=== PATIENT | female | born 1960 | race Caucasian/White ===

== ENCOUNTER 2018-01-19 19:41 | Emergency (ER) | payer OTHER ==
[2018-01-19 19:41] VITALS: BMI 23.8
[2018-01-19 20:04] VITALS: BP 139/88; PULSE 87; RESP 18; TEMP 98.7; O2SAT 99
[2018-01-19] MEDS ORDERED: Tetanus/Diphtheria Toxoids 0.5 ml Syringe IM ONE (20:13)
[2018-01-19] MEDS ORDERED: Bacitracin 500 Units/gm Oint Foilpak UD TOP ONE (20:17)
[2018-01-19] MEDS ORDERED: Tdap Vaccine 0.5 ml Vial (10-64 yrs) IM ONE (20:19)
[2018-01-19] MEDS ORDERED: Bacitracin 500 Units/gm Oint Foilpak UD ONE (20:20)
--- NOTE | 2018-01-19 20:20 | C.PDOC ---
History Of Present Illness 57 year old female presents to the ED for evaluation of left hand injury. Patient reports while at home she accidentally punctured her hand with a stapler , requesting tetanus hot. 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 Patient denies pain, active bleeding, swelling, weakness, numbness. Time Seen by Provider: 01/19/18 20:07 Chief Complaint (Nursing): Abnormal Skin Integrity History Per: Patient History/Exam Limitations: no limitations Onset/Duration Of Symptoms: Hrs Current Symptoms Are (Timing): Still Present Location Of Injury: Left: Hand Quality Of Symptoms: Painful Recent travel outside of the [place]: No Additional History Per: Patient Past Medical History Reviewed: Historical Data, Nursing Documentation, Vital Signs Vital Signs: Last Vital Signs Temp 98.7 F 01/19/18 20:01 Pulse 87 01/19/18 20:01 Resp 18 01/19/18 20:01 BP 139/88 01/19/18 20:01 Pulse Ox 99 01/19/18 23:31 - Medical History PMH: Anxiety, HTN Denies: Chronic Kidney Disease Surgical History: No Surg Hx - [facility] Procedures CLOSED ENDOSCOPIC BIOPSY OF LARGE INTESTINE (12/19/14) ESOPHAGOGASTRODUODENOSCOPY [EGD] W/CLOSED BIOPSY (12/26/14) Family History: States: Unknown Family Hx - Social History Hx Alcohol Use: No Hx Substance Use: No - Immunization History Hx Tetanus Toxoid Vaccination: No Hx Influenza Vaccination: Yes Hx Pneumococcal Vaccination: Yes Review Of Systems Constitutional: Negative for: Fever, Chills Cardiovascular: Negative for: Chest Pain Respiratory: Negative for: Shortness of Breath Musculoskeletal: Positive for: Hand Pain Skin: Positive for: Other (indentations). Negative for: Rash Neurological: Negative for: Weakness, Numbness Physical Exam - Physical Exam Appears: Non-toxic, No Acute Distress Skin: Normal Color, Warm, Dry, Other (2 small indentations consistent with staple punctures noted on left hand) Head: Atraumatic, Normacephalic Eye(s): bilateral: Normal Inspection Extremity: Normal ROM, No Tenderness, Capillary Refill (< 2 seconds), No Swelling Pulses: Left Radial: Normal, Right Radial: Normal Neurological/Psych: Oriented x3, Normal Motor, Normal Sensation Gait: Steady ED Course And Treatment O2 Sat by Pulse Oximetry: 99 (ON RA) Pulse Ox Interpretation: Normal Progress Note: Plan: - Bacitracin. - Tetanus update. Patient's wound was cleaned with betadine, bacitracin was applied to the site of the wound. Patient was instructed on wound care and advised to follow up with PMD in 2 days or return to the ED if symptoms worsen. 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 - Scribe Statement The provider has reviewed the documentation as recorded by the Scribe Rakesh Bellamy All medical record entries made by the Scribe were at my direction and personally dictated by me. I have reviewed the chart and agree that the record accurately reflects my personal performance of the history, physical exam, medical decision making, and the department course for this patient. I have also personally directed, reviewed, and agree with the discharge instructions and disposition.
== END 2018-01-19 20:25 | disposition home or self-care (01) ==
LOC: SUPCPDRO 19:41 → C.ER 19:41
DX: S61.432A Puncture wound without foreign body of left hand, initial encounter (principal); W27.8XXA Contact with other nonpowered hand tool, initial encounter; Y92.009 Unspecified place in unspecified non-institutional (private) residence as the place of occurrence of the external cause

== ENCOUNTER 2018-11-16 09:57 | Emergency (ER) | payer MEDICARE, OTHER ==
[2018-11-16 09:58] VITALS: BMI 23.8
[2018-11-16] MEDS ORDERED: DiphenhydrAMINE 50 mg/ml Inj IVP STA (11:19)
[2018-11-16 11:39] LABS: BASO % 0.9 % (0.0-2.0); EOS % 0.6 % (0.0-4.0); HEMOGLOBIN 8.8 g/dL (11.0-16.0); LYMPH % 18.2 % (20.0-40.0); MEAN CELL VOLUME 81.7 fL (81.0-99.0); MEAN CORPUSCULAR HEMOGLOBIN 26.3 pg (27.0-31.0); MEAN CORPUSCULAR HGB CONC 32.2 g/dL (33.0-37.0); MEAN PLATELET VOLUME 9.1 fL (7.2-11.7); MONO # 0.4 K/uL (0.0-0.8); MONO % 7.4 % (0.0-10.0); NEUT # 3.9 K/uL (1.8-7.0); NEUT % 72.9 % (50.0-75.0); NRBC % 0.1 % (0.0-2.0); RBC 3.36 Mil/uL (3.80-5.20); RED CELL DISTRIBUTION WIDTH 18.7 % (11.5-14.5); WHITE BLOOD COUNT 5.3 K/uL (4.8-10.8)
[2018-11-16 11:59] LABS: ALBUMIN 3.9 g/dL (3.5-5.0); ALT/SGPT 126 U/L (9-52); AST/SGOT 126 U/L (14-36); BLOOD UREA NITROGEN 10 mg/dL (7-17); CALCIUM 10.1 mg/dl (8.6-10.4); GFR NON-AFRICAN AMERICAN > 60
[2018-11-16] MEDS ORDERED: DiphenhydrAMINE 50 mg/ml Inj ONE (12:12)
--- NOTE | 2018-11-16 12:53 | C.PDOC ---
History Of Present Illness Pt c/o generalized itching. Time Seen by Provider: 11/16/18 10:44 Chief Complaint (Nursing): Allergic Reaction History Per: Patient, Family, Subpoena Server History/Exam Limitations: language barrier Onset/Duration Of Symptoms: Days Current Symptoms Are (Timing): Still Present Possible Cause: Unknown Associated Symptoms: Itching Home/EMS Treatment: Other (Atarax 25mg) Severity: Moderate Additional History Per: Prior Records Past Medical History Reviewed: Historical Data, Nursing Documentation, Vital Signs Vital Signs: Last Vital Signs Temp 98.2 F 11/16/18 10:05 Pulse 97 H 11/16/18 10:05 Resp 17 11/16/18 10:05 BP 139/85 11/16/18 10:05 Pulse Ox 100 11/16/18 10:05 - Medical History PMH: Anemia, Anxiety, HTN, Malignancy (Liver) - [facility] Procedures CLOSED ENDOSCOPIC BIOPSY OF LARGE INTESTINE (12/19/14) ESOPHAGOGASTRODUODENOSCOPY [EGD] W/CLOSED BIOPSY (12/26/14) Family History: States: Unknown Family Hx - Social History Hx Alcohol Use: No Hx Substance Use: No - Immunization History Hx Tetanus Toxoid Vaccination: No Hx Influenza Vaccination: Yes Hx Pneumococcal Vaccination: Yes Review Of Systems Except As Marked, All Systems Reviewed And Found Negative. Constitutional: Negative for: Fever Eyes: Negative for: Conjunctivae Inflammation, Eyelid Inflammation, Redness ENT: Negative for: Mouth Pain, Mouth Swelling, Throat Pain, Throat Swelling Cardiovascular: Negative for: Chest Pain Respiratory: Negative for: Shortness of Breath Gastrointestinal: Negative for: Vomiting, Abdominal Pain Genitourinary: Negative for: Dysuria Musculoskeletal: Negative for: Neck Pain Skin: Negative for: Rash Neurological: Negative for: Weakness, Numbness Physical Exam - Physical Exam Appears: Non-toxic, No Acute Distress, Chronically Ill Skin: Warm, Dry, Pale, No Rash Head: Atraumatic, Normacephalic Eye(s): bilateral: PERRL, EOMI Throat: Normal Neck: Normal ROM, Supple Cardiovascular: Rhythm Regular Respiratory: Normal Breath Sounds, No Accessory Muscle Use Gastrointestinal/Abdominal: Soft, No Tenderness Extremity: Normal ROM Neurological/Psych: Oriented x3, Normal Speech, Normal Motor, Normal Sensation ED Course And Treatment - Laboratory Results Result Diagrams: 11/16/18 11:34 11/16/18 11:34 Lab Results: Total Bilirubin 0.8 mg/dL (0.2-1.3) 11/16/18 11:34 AST 126 U/L (14-36) H 11/16/18 11:34 ALT 126 U/L (9-52) H 11/16/18 11:34 Alkaline Phosphatase 1354 U/L (38-126) H 11/16/18 11:34 Total Protein 7.7 g/dL (6.3-8.3) 11/16/18 11:34 Albumin 3.9 g/dL (3.5-5.0) 11/16/18 11:34 Globulin 3.7 gm/dL (2.2-3.9) 11/16/18 11:34 Albumin/Globulin Ratio 1.0 (1.0-2.1) 11/16/18 11:34 Interpretation Of Abnormal: Abnormal LFTs. Anemia. O2 Sat by Pulse Oximetry: 100 Pulse Ox Interpretation: Normal Progress Note: Pt states that she is receiving treatment for her CA at [facility] and that she has an appointment with her doctor in 3 days. Progress - Interventions Interventions:: Observation - Medications Administered Intravenous: Antihistamine (H-1) - Data Reviewed Data Reviewed: Lab, Old records - Patient Status Patient status: Partially improved - Continuity of Care Discussed patient case with:: Patient, Family-HIPPA compliant, ED Nurse - Patient Plan Patient Plan: Discharge, F/U with PCP Disposition Counseled Patient/Family Regarding: Studies Performed, Diagnosis, Need For Followup, Rx Given - Disposition Referrals: Kerwin Bishop MD [Staff Provider] - Disposition: HOME/ ROUTINE Disposition Time: 12:54 Condition: STABLE Additional Instructions: Follow up with your doctor for further evaluation and treatment. Return to the ER if you develop throat swelling, trouble breathing, fever, worsening of symptoms or if you have any other concerns. Prescriptions: hydrOXYzine HCl [Atarax] 50 mg PO Q6 PRN #30 tab PRN Reason: Itching / Pruritus Instructions: Itchy Skin Forms: [employer] (Syrian) Print Language: [place] CITIZEN - Clinical Impression Clinical Impression: Pruritus
[2018-11-16 13:06] VITALS: BP 130/75; PULSE 89; RESP 16; TEMP 98.5; O2SAT 98
== END 2018-11-16 13:03 | disposition home or self-care (01) ==
LOC: C.ER 09:57
DX: L29.9 Pruritus, unspecified (principal); I10 Essential (primary) hypertension
CPT/HCPCS: 80053; 85025; 96374; 99284; J1200